=== PATIENT | male | born 1945 | race Caucasian/White ===

== ENCOUNTER 2018-10-03 19:12 | Inpatient (IN) | payer MEDICARE, OTHER, BC ==
[2018-10-03] MEDS ORDERED: Albuterol/Ipratropium NEB.SOL* Albuterol 2.5 MG/Ipratropium 0.5 MG 3 ML INH ONE (19:42)
[2018-10-03] MEDS ORDERED: Levofloxacin 500 MG IVPREMIX(* 500 MG/100 ML BAG IVPB ONE (19:43)
[2018-10-03] MEDS ORDERED: methylPREDNISolone 125 MG* 2 ML VIAL IV ONE (19:43)
[2018-10-03] MEDS ORDERED: Magnesium Sulfate 2 GM IV* 2 GM/50 ML BAG IVPB ONE (19:43)
--- NOTE | 2018-10-03 19:46 | ED ---
Shortness of Breath - HPI Summary HPI Summary: This patient is a 73 year old M presenting to [facility] accompanied by his with a chief complaint of sudden onset shortness of breath since 18:00. Patient received a CXR at [place] this morning and notes that it was normal. The patient rates the pain 0/10 in severity. Symptoms aggravated by nothing. Symptoms alleviated by nothing. Patient reports cough, fever, sore throat and HERNANDEZ since 1 day ago. Patient denies being swabbed for the flu while at [place]. Patient notes that he was given Tamiflu and abx at [place] this morning. Hx COPD , AFib, sleep apnea, and CHF. Patient notes that he uses a BPAP machine at night. - History of Current Complaint Chief Complaint: EDShortnessOfBreath Time Seen by Provider: 10/03/18 19:23 Hx Obtained From: Patient Onset/Duration: Sudden Onset, Lasting Hours, Still Present Timing: Constant Current Severity: Mild Dyspnea At: Rest Aggrevating Factors: Other Alleviating Factors: Other Associated Signs & Symptoms: Cough (Nonproductive), Fever - Allergy/Home Medications Allergies/Adverse Reactions: Allergies Allergy/AdvReac Type Severity Reaction Status Date / Time No Known Allergies Allergy Verified 10/03/18 19:17 PMH/Surg Hx/FS Hx/Imm Hx Endocrine/Hematology History: Denies: Hx Anticoagulant Therapy, Hx Diabetes, Hx Thyroid Disease Cardiovascular History: Reports: Hx Angina, Hx Atrial Fibrillation, Hx Congestive Heart Failure, Hx Hypertension - TREATED WITH MEDICATION Denies: Hx Myocardial Infarction, Hx Pacemaker/ICD, Hx Syncope Respiratory History: Reports: Hx Chronic Obstructive Pulmonary Disease (COPD), Hx Sleep Apnea Denies: Hx Asthma History: Denies: Hx Dialysis, Hx Renal Disease Musculoskeletal History: Reports: Hx Arthritis, Hx Back Problems, Hx Gout Sensory History: Denies: Hx Hearing Aid Neurological History: Denies: Hx Dementia, Hx Migraine, Hx Seizures Psychiatric History: Denies: Hx Panic Disorder, Hx Substance Abuse - Surgical History Surgery Procedure, Year, and Place: 2 LT KNEE SCOPE. 2 RT KNEE SCOPE. 1 LT SHOULDER RCT. 4 RADIO FREQUENCY ABLASIONS IN BACK 08/29,08/28,06/16/14. APPENDECTOMY 1951. LASIK EYE. LUMBAR LAMINECTOMY 12/2014 [facility] Hx Anesthesia Reactions: No Infectious Disease History: No Infectious Disease History: Denies: Hx Hepatitis, Hx Human Immunodeficiency Virus (HIV), Traveled Outside the [place] in Last 30 Days - Family History Known Family History: Positive: Cardiac Disease, Hypertension - Social History Alcohol Use: Daily Alcohol Amount: 1-5 drinks Substance Use Type: Reports: None Smoking Status (MU): Former Smoker Type: Cigarettes, Cigars Length of Time of Smoking/Using Tobacco: [id number] Have You Smoked in the Last Year: No Review of Systems Positive: Fever Positive: Sore Throat Positive: Shortness Of Breath, Cough Negative: Vomiting Positive: Headache All Other Systems Reviewed And Are Negative: Yes Physical Exam - Summary Physical Exam Summary: VITAL SIGNS: Reviewed. GENERAL: Patient is a morbidly obese MALE who is lying comfortable in the stretcher. Patient is not in any acute respiratory distress. HEAD AND FACE: No signs of trauma. No ecchymosis, hematomas or skull depressions. No sinus tenderness. EYES: PERRLA, EOMI x 2, No injected conjunctiva, no nystagmus. EARS: Hearing grossly intact. Ear canals and tympanic membranes are within normal limits. MOUTH: Oropharynx within normal limits. NECK: Supple, trachea is midline, no adenopathy, no JVD, no carotid bruit, no c- spine tenderness, neck with full ROM. CHEST: Symmetric, no tenderness at palpation LUNGS: Decreased breath sounds bilaterally. No wheezing or crackles. CVS: Regular rate and rhythm, S1 and S2 present, no murmurs or gallops appreciated. ABDOMEN: Non-tender. Abdominal distension. No rebound no guarding, and no masses palpated. Bowel sounds are normal. EXTREMITIES: FROM in all major joints, no edema, no cyanosis or clubbing. NEURO: Alert and oriented x 3. No acute neurological deficits. Speech is normal and follows commands. SKIN: Dry and warm Triage Information Reviewed: Yes Vital Signs On Initial Exam: Initial Vitals Temp Pulse Resp BP Pulse Ox 99.5 F 114 20 140/87 98 10/03/18 19:13 10/03/18 19:13 10/03/18 19:13 10/03/18 19:13 10/03/18 19:13 Vital Signs Reviewed: Yes Diagnostics - Vital Signs Vital Signs Temp Pulse Resp BP Pulse Ox 10/03/18 19:13 99.5 F 114 20 140/87 98 - Laboratory Result Diagrams: 10/03/18 19:58 10/03/18 19:58 Lab Statement: Any lab studies that have been ordered have been reviewed, and results considered in the medical decision making process. - Radiology CXR Radiology Interpretation Completed By: ED Physician - Dr. Winchester, pending official report Summary of Radiographic Findings: questionable right lower lobe infiltrates - EKG 19:19 Cardiac Rate: Tachycardia - at 111 bpm EKG Rhythm: Atrial Fibrillation Summary of EKG Findings: AFib at 111 bpm with low voltage Course/Dx - Course Course Of Treatment: This patient is a 73 year old M with hx COPD, AFib, and CHF reporting sudden onset shortness of breath since 18:00. Patient reports cough, fever, and HERNANDEZ since 1 day ago. Patient denies being swabbed for the flu while at [place] this morning. Patient notes that he was given Tamiflu and abx this morning. An EKG reveals AFib at 111 bpm and low voltage. CXR reveals, per ED physician, questionable right lower lobe infiltrates. In the ED course the patient was given albuterol, Levaquin, magnesium sulfate, and Solu-Medrol. Patient care was discussed with Dr. Stovall, hospitalist, and she agreed to admit the patient. Patient will be admitted to [facility]. The patient is agreeable with this plan. - Diagnoses Provider Diagnoses: COPD (chronic obstructive pulmonary disease), Influenza A - Physician Notifications Discussed Care of Patient With: Sonja Stovall Time Discussed With Above Provider: 20:39 Instructed by Provider To: Admit As Inpatient Discharge - Sign-Out/Discharge Documenting (check all that apply): Patient Departure - admitted to [facility] - Discharge Plan Condition: Stable Disposition: ADMITTED TO [facility] Referrals: Deborah Ruiz MD [Primary Care Provider] - - Attestation Statements Document Initiated by Scribe: Yes Documenting Scribe: Lisy Cadet Provider For Whom Bill is Documenting (Include Credential): Niecy Winchester MD Scribe Attestation: Lisy Holland, scribed for Niecy Winchester MD on 10/03/18 at 2033. Status of Scribe Document: Ready
[2018-10-03 20:09] LABS: ABS Basophils 0.1 10^3/ul (0-0.2); ABS Eosinophils 0 10^3/ul (0-0.6); ABS Lymphocytes 0.5 10^3/ul (1.0-4.8); ABS Monocytes 1.3 10^3/ul (0-0.8); ABS Neutrophils 9.2 10^3/ul (1.5-7.7); ABS Nucleated RBC 0 10^3/ul; Eosinophil % 0.3 %; Hematocrit 45 % (42-52); Hemoglobin 15.2 g/dl (14.0-18.0); Lymphocyte % 4.6 %; Mean Corpuscular HGB Conc 34 g/dl (31-36); Mean Corpuscular Hemoglobin 32 pg (27-31); Mean Corpuscular Volume 94 fL (80-94); Mean Platelet Volume 7.8 fL (7.4-10.4); Nucleated Red Blood Cells % 0; Platelet Count 241 10^3/ul (150-450); Red Blood Count 4.83 10^6/ul (4.00-5.40); Red Cell Distribution Width 13 % (10.5-15); White Blood Count 11.1 10^3/ul (3.5-10.8)
[2018-10-03] MEDS: Albuterol 2.5 MG/3 ML NEB.SOL* (0.083%) INH PRN ×2 (20:15→20:30)
[2018-10-03] MEDS ORDERED: Albuterol 2.5 MG/3 ML NEB.SOL* (0.083%) INH ONE (20:18)
[2018-10-03 20:19] LABS: Activated Partial Thrombo Time 36.3 seconds (26.0-36.3); INR 1.59 (0.77-1.02)
[2018-10-03 20:27] LABS: Albumin 4.4 g/dL (3.2-5.2); Albumin/Globulin Ratio 1.6 (1-3); C Reactive Protein 23.44 mg/L (<8.01); Calcium 9.2 mg/dL (8.6-10.3); EGFR Non-African American 56.1 (>60); Globulin 2.8 g/dL (2-4); Total Bilirubin 0.7 mg/dL (0.2-1.0); Total Protein 7.2 g/dL (6.4-8.9)
[2018-10-03] MEDS ORDERED: Acetaminophen TAB* 325 MG PO ONE (20:33)
[2018-10-03] MEDS ORDERED: NS 0.9% 1000 ML* 1,000 ML IV ONE ×2 (21:14→21:17)
[2018-10-03] MEDS ORDERED: Diltiazem IV* 5 MG/ML 5 ML VIAL (for loading dose/IV Push) (25 MG) IV SLOW PU ONE ×2 (21:15→21:55)
[2018-10-03] MEDS ORDERED: Ondansetron INJ* 2 MG/ML VIAL IV PRN (21:58)
[2018-10-03] MEDS ORDERED: Acetaminophen TAB* 325 MG PO PRN (21:58)
[2018-10-03] MEDS ORDERED: Albuterol/Ipratropium NEB.SOL* Albuterol 2.5 MG/Ipratropium 0.5 MG 3 ML INH PRN (22:12)
[2018-10-03] MEDS ORDERED: NS 0.9% 1000 ML* 1,000 ML IV SCH (22:15)
[2018-10-03] MEDS ORDERED: cefTRIAXone(*) 1 GM ADVAN/BAG ONE (22:25)
[2018-10-03] MEDS: cefTRIAXone(*) 1 GM in NS 0.9% 50 ML* 50 ML IVPB SCH (22:27)
[2018-10-03] MEDS ORDERED: Fluticasone/Vilanterol MDI(NF) 100/25 MDI INH SCH (23:00)
[2018-10-03] MEDS ORDERED: Diltiazem IV VIAL* 125 MG in NS 0.9% 100 ML* 100 ML IV SCH (23:30)
[2018-10-03] MEDS ORDERED: Melatonin 3 MG TAB PO PRN (23:57)
[2018-10-04] MEDS: Oseltamivir CAP* 75 MG CAP PO SCH ×3 (00:21→20:07)
[2018-10-04] MEDS: DOXYcycline IV* 100 MG in NS 0.9% 250 ML* 250 ML IVPB SCH ×2 (00:21→11:57)
[2018-10-04] MEDS ORDERED: Diltiazem IV VIAL* 125 MG in NS 0.9% 100 ML* 100 ML IV SCH ×2 (01:04→16:00)
--- NOTE | 2018-10-04 03:49 | HP ---
CC: Dr. Ruiz; Dr. Montenegro * HISTORY AND PHYSICAL: DATE OF ADMISSION: 10/03/18 PRIMARY CARE DOCTOR: Dr. Ruiz. OUTPATIENT OPTICAL INSTRUMENT ASSEMBLER: Dr. Montenegro. MY ATTENDING PHYSICIAN WHILE IN THE HOSPITAL: Dr. Sonja Sharma* (DICTATED BY CAM JOHNSON) CHIEF COMPLAINT: Shortness of breath and cough x1 day. HISTORY OF PRESENT ILLNESS: Mr. Choudhury is a 73-year-old patient with a past medical history significant for atrial fibrillation, CHF, reactive airway disease, hypertension, hyperlipidemia, and FILIPE who presents to the emergency department after last night he was in his normal state of health and around 6 p.m. began to develop a significant cough, which kept him up most of the night, but without significant shortness of breath or wheezing. The patient also had no chest pain, increased swelling in his legs, dyspnea on exertion. The patient went to a physician at [place] and had a chest x-ray, which that physician there interpreted as being consistent with flu with no focal consolidation. He was prescribed Tamiflu, azithromycin, cough syrup, and was discharged home, that was around 3 p.m. At approximately 6:15 p.m., the patient suddenly felt like he was unable to catch his breath. The patient denied any audible wheezing, but felt lightheaded. EMS was activated. The patient received a breathing treatment in the ambulance which helped significantly. The patient's lightheadedness went away. The patient has been having chills throughout the day today. The patient denies any subjective or objective fevers. The patient denies at any point having any chest pain. The patient denies palpitations. The patient does not know when he goes in and out of atrial fibrillation. The patient is not having any diarrhea, abdominal pain, muscle aches. The patient has not passed out. The patient now feels like he can breathe significantly easier. The patient in the emergency department was found to be influenza A positive and had a chest x-ray with a possible lobar infiltrate in the right lower lobe per the ED physician and this reader, it is possible interstitial changes that would be consistent with flu or fluid overload. The patient was hypoxic in the ambulance and has been needing 4 L of oxygen and has been tachycardic up to the 160s consistently while in the emergency department. Due to concerns for flu, possible pneumonia, and tachycardia, we are asked to evaluate the patient for admission. PAST MEDICAL HISTORY: Atrial fibrillation; obstructive sleep apnea; hypertension; hyperlipidemia; history of CVA in 2012; history of CHF, unknown EF ; reactive airway disease, recently normal PFTs. PAST SURGICAL HISTORY: Radiofrequency ablation of the spine, meniscotomy in both knees twice, rotator cuff repair. MEDICATIONS: 1. Diltiazem ER 240 mg p.o. daily. 2. Allopurinol 300 mg p.o. daily. 3. Tamiflu 75 mg p.o. b.i.d., the patient has taken 1 dose. 4. Robafen AC 10 mL q.4 hours as needed. 5. Z-Oscar, the patient has taken 500 mg of this. 6. Breo Ellipta 125 inhalations, 1 inhalation b.i.d. 7. Singular 10 mg p.o. daily. 8. Rosuvastatin 40 mg p.o. daily. 9. Torsemide 20 mg p.o. daily. 10. ProAir inhaler 1 puff inhalation q.6 hours as needed. 11. Xarelto 5 mg p.o. daily. 12. Sildenafil 100 mg p.o. as needed. ALLERGIES: No know drug allergies. FAMILY HISTORY: The patient's mother with complications of dementia. The patient's father of heart attack. The patient has 2 sisters who are healthy. SOCIAL HISTORY: The patient smoked cigarettes from 1962 to 1973. The patient smokes cigars occasionally until recently. The patient drinks approximately 2 beers a day, 1 glass of zaheer, and 1 glass of red wine. The patient denies illicit drug use. The patient used to work as a golf pro. The patient is , has 2 children. The patient's surrogate decision maker will be his , Kathy Choudhury. REVIEW OF SYSTEMS: A 14-point review of systems were reviewed and revealed recent 22-pound weight gain after the patient was unable to exercise to his normal routine, but no other significant finding except as noted in the HPI. PHYSICAL EXAMINATION GENERAL: The patient is a 73-year-old male who appears stated age, sitting comfortably in bed, in no acute distress. VITAL SIGNS: Temperature 97.8, pulse rate 112, respiratory rate 25, oxygen saturation 97% on 4 L, blood pressure 133/80. HEENT: Head: Normocephalic, atraumatic. Sclerae anicteric. No conjunctival injection. Nasal mucosa moist. Oral mucosa moist. No pharyngeal erythema, discharge, or exudate. NECK: Supple, nontender. No lymphadenopathy. No carotid bruit auscultated. No JVD. RESPIRATORY: Diminished. No wheezes, rales, or rhonchi. Good air exchange bilaterally. HEART: Tachycardic, irregularly irregular rhythm. No clicks, murmurs, gallops , or rubs. Pulse is 2+ in the dorsalis pedis, posterior tibialis, and radial areas. Trace bilateral lower extremity edema. ABDOMEN: Soft, nontender, nondistended. Bowel sounds present and normoactive in all 4 quadrants. No hepatosplenomegaly. No abdominal bruits auscultated. No hepatojugular reflux. GENITOURINARY: No suprapubic or CVA tenderness. SKIN: Clean, dry, and intact. No rash. NEUROLOGIC: Cranial nerves II through XII intact. No focal deficits. Alert and oriented x3. PSYCHIATRIC: Pleasant and cooperative. DIAGNOSTIC STUDIES/LAB DATA: White blood cell count 11.1, hemoglobin 15.2, platelet count 241. INR 1.59, PTT 36.3. ABG; pH 7.46, pCO2 of 40, pO2 of 90, pCO3 of 28.2, oxygen saturation 98.4%, base excess 4.2. Sodium 136, potassium 4.0, chloride 98, carbon dioxide 29, anion gap 9, BUN 24, creatinine 1.26, glucose 132, lactic acid 1.5, calcium 9.2. Bilirubin 0.7, AST 20, ALT 37, alkaline phosphatase 67. Troponin I 0.03. CRP 23.44. BNP 76. Protein 7.2, albumin 4.4, globulin 2.8. Influenza A positive. Studies: Electrocardiogram shows atrial fibrillation with rate of 111; borderline ST segment depression in V3, V4, and V5; QTc 499; rate of 111; normal axis; no blocks or hypertrophy; compared to previous exam, no significant changes. Chest x-ray to this author's view shows interstitial changes with possible right lower lobe infiltrate. ASSESSMENT AND PLAN: Impression: The patient is a 73-year-old male with past medical history significant for atrial fibrillation, hypertension, congestive heart failure, and reactive airway disease who presents to the emergency department with flu A positive with possible community acquired pneumonia superinfection, also with mild chronic obstructive pulmonary disease, who in the emergency department was found to be flu A positive and to have uncontrolled tachycardia. The patient will be admitted to the hospital for rate control, IV antibiotics, and treatment of his flu. 1. Influenza positive, possible pneumonia, acute hypoxic respiratory failure. The patient is currently requiring 4 L oxygen via nasal cannula. The patient has flu A positive and has a likely infiltrate on exam. The patient will be treated with Tamiflu, ceftriaxone, and doxycycline. The patient received Levaquin in the emergency department and also received azithromycin as outpatient. The patient will have repeat chest x-ray in the morning for further elucidation of his possible infiltrate. The patient has a BNP currently of 76 and has a known history of heart failure. The patient's lung exam is not consistent with congestive heart failure at this time; however, given the patient's already tenuous respiratory status, we will be cautious with fluids. The patient was started on steroids in the emergency department, this will not be continued due to lack of predominant wheezing. 2. Atrial fibrillation with rapid ventricular rate. The patient's rate is fluctuating between the 130s and 160s during examination. This is likely partially due to his respiratory treatments with underlying atrial fibrillation. The patient will be started on normal saline at 100 mL an hour for blood pressure support. The patient has already received 2 boluses of 1000 mL each. The patient will be started on diltiazem drip for rate control. The patient had a negative troponin and non-ischemic EKG. The patient will be continued on his Xarelto. Inpatient cardiology consult can be considered if the patient's atrial fibrillation continues to be an issue or he shows signs of decompensation or his blood pressure is not able to kept up with adequate rate control due to his concurrent infection. 3. History of congestive heart failure. The patient does not appear to be in congestive heart failure at this time. The patient has a BNP of 76. She will be monitored closely for signs of fluid overload. The patient's torsemide will be held at this time. 4. Obstructive sleep apnea. The patient will have his home CPAP while in the hospital. 5. Hypertension. The patient will be on diltiazem drip. The patient will be monitored closely for hypotension. 6. Hyperlipidemia. Continue Crestor. 7. Cerebrovascular accident. This is a non-active issue. The patient is not on any antiplatelet agent. 8. DVT prophylaxis: Xarelto. 7. FEN: The patient will have fluids and a heart healthy diet without caffeine. 8. Disposition. The patient is admitted inpatient with estimated length of stay greater than 2 midnights. TIME SPENT: Approximately 1 hour spent on admission of this patient, 35 of which was spent [id number] with the patient obtaining history and physical and discussing treatment plan. This plan was discussed with my attending, Dr. Sonja Sharma, and she is in agreement. CAM JOHNSON [id number]/CPS #: [id number] RON
[2018-10-04 06:06] LABS: ABS Basophils 0 10^3/ul (0-0.2); ABS Eosinophils 0 10^3/ul (0-0.6); ABS Lymphocytes 0.3 10^3/ul (1.0-4.8); ABS Monocytes 0.2 10^3/ul (0-0.8); ABS Neutrophils 7.3 10^3/ul (1.5-7.7); ABS Nucleated RBC 0 10^3/ul; Eosinophil % 0.1 %; Hematocrit 40 % (42-52); Hemoglobin 13.6 g/dl (14.0-18.0); Lymphocyte % 4.2 %; Mean Corpuscular HGB Conc 34 g/dl (31-36); Mean Corpuscular Hemoglobin 32 pg (27-31); Mean Corpuscular Volume 94 fL (80-94); Mean Platelet Volume 7.7 fL (7.4-10.4); Nucleated Red Blood Cells % 0; Platelet Count 214 10^3/ul (150-450); Red Blood Count 4.26 10^6/ul (4.00-5.40); Red Cell Distribution Width 13 % (10.5-15); White Blood Count 7.8 10^3/ul (3.5-10.8)
[2018-10-04 06:33] LABS: BUN/Creatinine Ratio 19.8 (8-20); Calcium 8.6 mg/dL (8.6-10.3); EGFR Non-African American 64.9 (>60); Magnesium 2.3 mg/dL (1.9-2.7); Potassium 3.8 mmol/L (3.5-5.0)
[2018-10-04] MEDS: MDI INH SCH ×2 (07:31→20:45)
[2018-10-04] MEDS: FLUTICASONE INH SCH ×2 (07:31→20:45)
[2018-10-04] MEDS: VILANTEROL MDI INH SCH ×2 (07:31→20:45)
[2018-10-04] MEDS: Atorvastatin* 80 MG TAB PO SCH (08:27)
[2018-10-04] MEDS: Rivaroxaban TAB(*) 20 MG TAB PO SCH (08:27)
[2018-10-04] MEDS: guaiFENesin ER TAB 600 MG PO SCH ×2 (08:27→20:07)
[2018-10-04] MEDS: Allopurinol TAB* 300 MG PO SCH (08:29)
--- NOTE | 2018-10-04 11:45 | PN ---
Subjective Date of Service: 10/04/18 Interval History: On assessment patient lying in bed without O2 supplementation. O2 sat on room air was 90% to 92%. Therefore, 2L replaced and O2 sat 96%. Reports he is coughing less frequently and "less violently". Reports shortness of breath has mildly improved. Objective Active Medications: Acetaminophen (Tylenol Tab*) 650 mg PO Q6H PRN PRN Reason: FEVER/PAIN Albuterol/Ipratropium (Duoneb (Albuterol 2.5 Mg/Ipratropium 0.5 Mg)) 1 neb INH Q6H PRN PRN Reason: SOB/WHEEZING Allopurinol (Zyloprim Tab*) 300 mg PO DAILY [facility] Last Admin: 10/04/18 08:29 Dose: Not Given Atorvastatin Calcium (Lipitor*) 80 mg PO DAILY [facility] Last Admin: 10/04/18 08:27 Dose: 80 mg Benzonatate (Tessalon Cap*) 100 mg PO BID PRN PRN Reason: COUGH Fluticasone/Vilanterol (Breo Ellipta Mdi 100/25(Nf)) 1 puff INH BID [facility] Last Admin: 10/04/18 07:31 Dose: Not Given Guaifenesin (Mucinex*) 1,200 mg PO BID [facility] Last Admin: 10/04/18 08:27 Dose: 1,200 mg Guaifenesin/Codeine Phosphate (Robitussin Ac 100mg-10mg*) 10 ml PO Q4H PRN PRN Reason: COUGH Sodium Chloride (Ns 0.9% 1000 Ml*) 1,000 mls @ 100 mls/hr IV PER RATE [facility] Doxycycline Hyclate 100 mg/ (Sodium Chloride) 250 mls @ 250 mls/hr IVPB Q12H [facility] Last Admin: 10/04/18 00:21 Dose: 250 mls/hr Ceftriaxone Sodium 1 gm/ (Sodium Chloride) 50 mls @ 200 mls/hr IVPB Q24H [facility] Last Admin: 10/03/18 22:27 Dose: 200 mls/hr Diltiazem HCl 125 mg/ Sodium (Chloride) 125 mls @ 5 mls/hr IV Q25H [facility]; Protocol Last Admin: 10/04/18 01:16 Dose: Not Given Melatonin (Melatonin) 3 mg PO BEDTIME PRN; Protocol PRN Reason: SLEEP Last Admin: 10/04/18 00:21 Dose: 3 mg Ondansetron HCl (Zofran Inj*) 4 mg IV Q6H PRN PRN Reason: NAUSEA Oseltamivir Phosphate (Tamiflu Cap*) 75 mg PO BID [facility] Stop: 10/07/18 21:01 Last Admin: 10/04/18 08:28 Dose: 75 mg Rivaroxaban (Xarelto(*)) 20 mg PO DAILY [facility] Last Admin: 10/04/18 08:27 Dose: 20 mg Vital Signs - 8 hr 10/04/18 10/04/18 10/04/18 03:46 03:57 04:30 Respiratory Rate Blood Pressure 98/60 92/70 96/58 (mmHg) 10/04/18 10/04/18 10/04/18 05:30 06:30 08:00 Respiratory 16 Rate Blood Pressure 127/86 109/63 (mmHg) 10/04/18 10/04/18 10:29 10:30 Respiratory Rate Blood Pressure 123/85 129/80 (mmHg) Oxygen Devices in Use Now: Nasal Cannula Appearance: Comfortable, NAD Eyes: No Scleral Icterus Ears/Nose/Mouth/Throat: Clear Oropharnyx, Mucous Membranes Moist Neck: NL Appearance and Movements; NL JVP Respiratory: Symmetrical Chest Expansion and Respiratory Effort, Clear to Auscultation Cardiovascular: NL Sounds; No Murmurs; No JVD, No Edema, - - Irregular Abdominal: NL Sounds; No Tenderness; No Distention Lymphatic: No Cervical Adenopathy Extremities: No Edema Skin: No Rash or Ulcers Neurological: Alert and Oriented x 3 Nutrition: Taking PO's Result Diagrams: 10/04/18 05:28 10/04/18 05:31 Additional Lab and Data: Laboratory Results - last 24 hr 10/03/18 10/03/18 10/03/18 19:58 19:58 19:58 WBC 11.1 H RBC 4.83 Hgb 15.2 Hct 45 MCV 94 MCH 32 H MCHC 34 RDW 13 Plt Count 241 MPV 7.8 Neut % (Auto) 82.8 Lymph % (Auto) 4.6 [place] % (Auto) 11.8 Eos % (Auto) 0.3 Baso % (Auto) 0.5 Absolute Neuts (auto) 9.2 H Absolute Lymphs (auto) 0.5 L Absolute Monos (auto) 1.3 H Absolute Eos (auto) 0 Absolute Basos (auto) 0.1 Absolute Nucleated RBC 0 Nucleated RBC % 0 INR (Anticoag Therapy) APTT ABG pH ABG pCO2 ABG pO2 ABG HCO3 ABG O2 Saturation ABG Base Excess Sodium 136 Potassium 4.0 Chloride 98 L Carbon Dioxide 29 Anion Gap 9 BUN 24 Creatinine 1.26 H Est GFR ( Amer) 67.9 Est GFR (Non-Af Amer) 56.1 BUN/Creatinine Ratio 19.0 Glucose 132 H Lactic Acid 1.5 Calcium 9.2 Magnesium Total Bilirubin 0.70 AST 28 ALT 37 Alkaline Phosphatase 67 Troponin I 0.03 C-Reactive Protein 23.44 H B-Natriuretic Peptide Total Protein 7.2 Albumin 4.4 Globulin 2.8 Albumin/Globulin Ratio 1.6 Influenza A (Rapid) 10/03/18 10/03/18 10/03/18 19:58 19:58 20:10 WBC RBC Hgb Hct MCV MCH MCHC RDW Plt Count MPV Neut % (Auto) Lymph % (Auto) [place] % (Auto) Eos % (Auto) Baso % (Auto) Absolute Neuts (auto) Absolute Lymphs (auto) Absolute Monos (auto) Absolute Eos (auto) Absolute Basos (auto) Absolute Nucleated RBC Nucleated RBC % INR (Anticoag Therapy) 1.59 H APTT 36.3 ABG pH 7.46 H ABG pCO2 40 ABG pO2 94 ABG HCO3 28.2 ABG O2 Saturation 98.4 H ABG Base Excess 4.2 H Sodium Potassium Chloride Carbon Dioxide Anion Gap BUN Creatinine Est GFR ( Amer) Est GFR (Non-Af Amer) BUN/Creatinine Ratio Glucose Lactic Acid Calcium Magnesium Total Bilirubin AST ALT Alkaline Phosphatase Troponin I C-Reactive Protein B-Natriuretic Peptide 76 Total Protein Albumin Globulin Albumin/Globulin Ratio Influenza A (Rapid) 10/03/18 10/04/18 10/04/18 20:17 05:28 05:31 WBC 7.8 RBC 4.26 Hgb 13.6 L Hct 40 L MCV 94 MCH 32 H MCHC 34 RDW 13 Plt Count 214 MPV 7.7 Neut % (Auto) 93.1 Lymph % (Auto) 4.2 [place] % (Auto) 2.4 Eos % (Auto) 0.1 Baso % (Auto) 0.2 Absolute Neuts (auto) 7.3 Absolute Lymphs (auto) 0.3 L Absolute Monos (auto) 0.2 Absolute Eos (auto) 0 Absolute Basos (auto) 0 Absolute Nucleated RBC 0 Nucleated RBC % 0 INR (Anticoag Therapy) APTT ABG pH ABG pCO2 ABG pO2 ABG HCO3 ABG O2 Saturation ABG Base Excess Sodium 136 Potassium 3.8 Chloride 100 L Carbon Dioxide 26 Anion Gap 10 BUN 22 Creatinine 1.11 Est GFR ( Amer) 78.6 Est GFR (Non-Af Amer) 64.9 BUN/Creatinine Ratio 19.8 Glucose 208 H Lactic Acid Calcium 8.6 Magnesium 2.3 Total Bilirubin AST ALT Alkaline Phosphatase Troponin I C-Reactive Protein B-Natriuretic Peptide Total Protein Albumin Globulin Albumin/Globulin Ratio Influenza A (Rapid) Positive A Microbiology and Other Data: Microbiology 10/03/18 22:20 Legionella Urinary Antigen - Final Urine Negative Legionella Antigen Streptococcus pneumoniae Ag Screen - Final Negative S. pneumo Antigen 10/03/18 19:58 Influenza Types A,B Antigen - Final Nasopharyngeal Specimen received for Influenza A/B Molecular testing Assess/Plan/Problems-Billing Assessment: 73 yr old male with pmh of afib, chf, reactive airway, htn, hld, maxwell; who present with cough and sob and was found to have flu a and pneumonia - Patient Problems (1) Acute respiratory failure with hypoxia Comment: - Improving as patient was needing 4L on admission and can maintain saturation on 2L - Cont supplemental O2 and wean as tolerating - Cont nebs (2) Influenza A Comment: - Cont Tamiflu (3) Pneumonia Comment: - Repeat chext xray revealed resolving right lower lobe infiltrate - Cont IV abx, possibly deesculate tomorrow (4) Atrial fibrillation with RVR Comment: - Patient is usually on 240 mg Diltizam ER at home, therefore, this restarted and Cardizem drip titrated off. - Cont tele (5) Dyslipidemia Comment: - Cont statin (6) HTN (hypertension) Comment: - Normotensive - Cont Diltiazam (7) MAXWELL (obstructive sleep apnea) Comment: - Cont Cpap (8) ETOH abuse Comment: - Report significant etoh intake on admission - Staff reports he detoxed on previous admission - [facility] protocol ordered (9) DVT prophylaxis Comment: - Xarlto Attending: Robert Roberson
[2018-10-04] MEDS ORDERED: Diltiazem TAB* 30 MG PO PRN (15:56)
[2018-10-04] MEDS ORDERED: Diltiazem CD CAP* 240 MG PO SCH (16:00)
[2018-10-04] MEDS: guaiFENesin/CODIEN 100MG-10MG* 5 ML UDC PO PRN ×2 (16:20→20:07)
[2018-10-04] MEDS ORDERED: Acetaminophen TAB* 325 MG PO PRN (18:42)
[2018-10-04] MEDS ORDERED: Thiamine IV* 100 MG/ML 2 ML VIAL IM ONE (19:30)
[2018-10-04] MEDS ORDERED: LORazepam TAB(*) 1 MG PO SCH (19:30)
[2018-10-04] MEDS: Benzonatate CAP* 100 MG PO PRN (20:07)
[2018-10-04] MEDS: cefTRIAXone(*) 1 GM in NS 0.9% 50 ML* 50 ML IVPB SCH (21:23)
[2018-10-05] MEDS: DOXYcycline IV* 100 MG in NS 0.9% 250 ML* 250 ML IVPB SCH (00:14)
[2018-10-05] MEDS: Atorvastatin* 80 MG TAB PO SCH (08:52)
[2018-10-05] MEDS: Oseltamivir CAP* 75 MG CAP PO SCH (08:52)
[2018-10-05] MEDS: Rivaroxaban TAB(*) 20 MG TAB PO SCH (08:52)
[2018-10-05] MEDS: Benzonatate CAP* 100 MG PO PRN (08:53)
[2018-10-05] MEDS: guaiFENesin ER TAB 600 MG PO SCH (08:53)
[2018-10-05] MEDS: Allopurinol TAB* 300 MG PO SCH (08:54)
[2018-10-05] MEDS ORDERED: Thiamine TAB* 100 MG TAB PO SCH (09:00)
[2018-10-05] MEDS ORDERED: Multivitamins/Minerals TAB PO SCH (09:00)
[2018-10-05] MEDS ORDERED: Folic Acid TAB* 1 MG PO SCH (09:00)
[2018-10-05] MEDS: MDI INH SCH (09:55)
[2018-10-05] MEDS: VILANTEROL MDI INH SCH (09:55)
[2018-10-05] MEDS: FLUTICASONE INH SCH (09:55)
--- NOTE | 2018-10-05 10:07 | PN ---
Subjective Date of Service: 10/05/18 Interval History: Mr. Choudhury reports that he is feeling better. He had minimal cough during the day yesterday but did have trouble sleeping due to cough overnight. He is tired and weak but feels that he is much improved overall. He denies chest pain and is tolerating oral intake well. He is eager for discharge to home. Objective Active Medications: Acetaminophen (Tylenol Tab*) 650 mg PO Q4H PRN Albuterol/Ipratropium (Duoneb (Albuterol 2.5 Mg/Ipratropium 0.5 Mg)) 1 neb INH Q6H PRN Allopurinol (Zyloprim Tab*) 300 mg PO DAILY RICARDA Atorvastatin Calcium (Lipitor*) 80 mg PO DAILY RICARDA Benzonatate (Tessalon Cap*) 100 mg PO BID PRN Diltiazem HCl (Cardizem Cd Cap*) 240 mg PO Q24H RICARDA Diltiazem HCl (Cardizem Tab*) 30 mg PO Q6HR PRN Fluticasone/Vilanterol (Breo Ellipta Mdi 100/25(Nf)) 1 puff INH BID RICARDA Folic Acid (Folvite Tab*) 1 mg PO DAILY RICARDA Guaifenesin (Mucinex*) 1,200 mg PO BID RICARDA Guaifenesin/Codeine Phosphate (Robitussin Ac 100mg-10mg*) 10 ml PO Q4H PRN Doxycycline Hyclate 100 mg/ (Sodium Chloride) 250 mls @ 250 mls/hr IVPB Q12H RICARDA Ceftriaxone Sodium 1 gm/ (Sodium Chloride) 50 mls @ 200 mls/hr IVPB Q24H RICARDA Lorazepam (Ativan Tab(*)) 0 - 6 mg PO .PER [facility] PROTOCOL RICARDA; Protocol Melatonin (Melatonin) 3 mg PO BEDTIME PRN; Protocol Multivitamins/Minerals (Theragran/Minerals Tab*) 1 tab PO DAILY RICARDA Ondansetron HCl (Zofran Inj*) 4 mg IV Q6H PRN Oseltamivir Phosphate (Tamiflu Cap*) 75 mg PO BID RICARDA Rivaroxaban (Xarelto(*)) 20 mg PO DAILY RICARDA Thiamine HCl (Vitamin B-1 Tab*) 100 mg PO DAILY [facility] Vital Signs: Temp Pulse Resp BP Pulse Ox 96.8 F 74 16 110/71 97 10/05/18 06:15 01/19/19 06:15 10/05/18 06:54 10/05/18 06:15 10/05/18 06:15 Oxygen Devices in Use Now: None Appearance: Male sitting up in bed in NAD Eyes: No Scleral Icterus Ears/Nose/Mouth/Throat: Mucous Membranes Moist Neck: Trachea Midline Respiratory: Symmetrical Chest Expansion and Respiratory Effort, Clear to Auscultation Cardiovascular: NL Sounds; No Murmurs; No JVD, No Edema Abdominal: NL Sounds; No Tenderness; No Distention Extremities: No Edema Skin: No Rash or Ulcers Neurological: Alert and Oriented x 3, NL Muscle Strength and Tone Nutrition: Taking PO's Result Diagrams: 10/04/18 05:28 10/04/18 05:31 Additional Lab and Data: . Microbiology and Other Data: . Assess/Plan/Problems-Billing Assessment: Mr. Choudhury is a 73 yr old male with pmh of afib, chf, reactive airway, htn, hld, filipe; who present with cough and sob and was found to have flu a and pneumonia. - Patient Problems (1) Acute respiratory failure with hypoxia Comment: - Resolved, SpO2 98% on room air at rest. (2) Influenza A Comment: - Cont Tamiflu x 5 days (3) Pneumonia Comment: - Repeat chext xray revealed resolving right lower lobe infiltrate - Complete course of cefpodoxime and azithromycin x 5 days total (4) ETOH abuse Comment: - No signs of withdrawal (5) Atrial fibrillation with RVR Comment: - Now controlled on home diltiazem (6) Dyslipidemia Comment: - Cont statin (7) HTN (hypertension) Comment: - Normotensive - Cont Diltiazam (8) FILIPE (obstructive sleep apnea) Comment: - Cont Cpap (9) DVT prophylaxis Comment: - Xarelto Status and Disposition: Inpatient. Discharge to home.
[2018-10-05 11:13] VITALS: BP 148/85
--- NOTE | 2018-10-05 12:42 | DS ---
CC: Dr. Ruiz * [facility] DISCHARGE SUMMARY: DATE OF ADMISSION: 10/03/18 DATE OF DISCHARGE: 10/05/18 ATTENDING PHYSICIAN: Dr. Diop * (dictation provided by Shira Pradhan NP). PRIMARY CARE PHYSICIAN: Dr. Ruiz. PRIMARY DIAGNOSES: 1. Influenza. 2. Suspected pneumonia. 3. Acute hypoxic respiratory failure, now resolved. 4. Atrial fibrillation with rapid ventricular rate. SECONDARY DIAGNOSES: 1. History of atrial fibrillation. 2. Obstructive sleep apnea. 3. Hypertension. 4. Hyperlipidemia. 5. History of cerebrovascular accident in 2011. 6. History of congestive heart failure, unknown ejection fraction. 7. Reactive airway disease. 8. Recently normal pulmonary function tests. PAST SURGICAL HISTORY: 1. Radiofrequency ablation of the spine. 2. Meniscotomy in both knees twice. 3. Rotator cuff repair. MEDICATIONS AT THE TIME OF DISCHARGE: 1. Rivaroxaban 20 mg p.o. daily. 2. Torsemide 20 mg p.o. daily. 3. Sildenafil 100 mg p.o. daily p.r.n. 4. Rosuvastatin 40 mg p.o. at bedtime. 5. Tamiflu 75 mg p.o. b.i.d. 6. Robitussin AC 10 mL p.o. q.4 hours p.r.n. 7. Montelukast 10 mg p.o. daily. 8. Fluticasone/vilanterol 200/25 one puff inhaled daily. 9. Diltiazem CD 240 mg p.o. daily. 10. Azithromycin 500 mg p.o. daily to complete a 5-day course. 11. Allopurinol 150 mg p.o. daily. 12. Guaifenesin ER tabs 1200 mg p.o. b.i.d. p.r.n. 13. Cefpodoxime 200 mg p.o. q.12 hours to complete a 5-day course. 14. Benzonatate 100 mg p.o. b.i.d. p.r.n. 15. Albuterol inhaler 2 puffs inhaled q.4 hours p.r.n. HOSPITAL COURSE: Mr. Choudhury is a 73-year-old male with a past medical history as outlined above, who presented to the emergency room on 10/03/18 with concern for shortness of breath and cough x1 day. Please see the dictated H and P from CAM Mcmahan for complete details. In brief as described, the patient had shortness of breath and a cough. He suddenly became very short of breath and unable to catch his breath, and therefore called the emergency medical services and was brought to the hospital. Here, he was found to be flu positive with a chest x-ray showing a possible right lower lobe infiltrate. He was requiring 4 L of oxygen to maintain an O2 saturation greater than 90% and he was tachycardic with a heart rate into the 160s with atrial fibrillation with RVR. Mr. Choudhury was admitted to the hospital. Tamiflu was initiated. The patient was treated with ceftriaxone and doxycycline with concern for pneumonia. For his atrial fibrillation with RVR, the patient was initially placed on a diltiazem infusion for rate control but he is now rate controlled back on his home diltiazem dose. Mr. Choudhury has recovered well. This morning, he is off of oxygen and has an O2 saturation of 98%. He is tolerating oral intake well. He states he has a cough but that the guaifenesin is helpful. Mr. Choudhury is medically stable for discharge to home. Plans are for him to follow up closely with Dr. Ruiz early next week and to complete a 5-day course of antibiotics and treatment of suspected pneumonia. DISPOSITION: To home. DIET: Low fat, low salt. ACTIVITY: As tolerated. FOLLOWUP PLANS: Please follow up with Dr. Ruiz early next week regarding his acute inpatient hospitalization for flu and pneumonia. TIME SPENT: Approximately 60 minutes was spent in the discharge of this patient , more than half the time spent with the patient at the bedside reviewing the events leading up to and during this hospitalization, performing the physical examination, and reviewing my plan of care. SHIRA PRADHAN NP [id number]/[facility] #: [id number] RON
== END 2018-10-05 11:10 | disposition home or self-care (01) | DRG 193 ==
LOC: ED 19:12 → MEDTELE 21:58
PROVIDERS: ADMIT Internal Medicine; ATTEND Internal Medicine
DX: J10.00 Influenza due to other identified influenza virus with unspecified type of pneumonia (principal); J96.01 Acute respiratory failure with hypoxia; J44.0 Chronic obstructive pulmonary disease with (acute) lower respiratory infection; I48.91 Unspecified atrial fibrillation; M10.9 Gout, unspecified; E66.01 Morbid (severe) obesity due to excess calories; G47.33 Obstructive sleep apnea (adult) (pediatric); E78.5 Hyperlipidemia, unspecified; R00.0 Tachycardia, unspecified; F10.10 Alcohol abuse, uncomplicated; I50.9 Heart failure, unspecified; I11.0 Hypertensive heart disease with heart failure; M19.90 Unspecified osteoarthritis, unspecified site; Y90.9 Presence of alcohol in blood, level not specified; Z82.49 Family history of ischemic heart disease and other diseases of the circulatory system; Z72.89 Other problems related to lifestyle; Z87.891 Personal history of nicotine dependence; Z68.33 Body mass index [BMI] 33.0-33.9, adult; Z86.73 Personal history of transient ischemic attack (TIA), and cerebral infarction without residual deficits; Z81.8 Family history of other mental and behavioral disorders; Z79.51 Long term (current) use of inhaled steroids; Z79.01 Long term (current) use of anticoagulants; Z99.81 Dependence on supplemental oxygen
CPT/HCPCS: 36415; 71045; 71046; 80048; 80053; 82803; 83605; 83735; 83880; 84484; 85025; 85610; 85730; 86140; 87040; 87899; 93005; 99284; A9270-GY; J0696; J1956; J2930; J3411; J3475

== ENCOUNTER 2019-01-09 13:07 | Emergency (ER) | payer MEDICARE, OTHER, BC ==
[2019-01-09 13:34] VITALS: BP 116/75
--- NOTE | 2019-01-09 14:29 | UC ---
Laceration HPI - HPI Summary HPI Summary: CHIEF COMPLAINT and HPI: This is a 73-year-old white male with a complex past medical history who fell onto the edge of a dog cage yesterday and sustained an injury to the right lower quadrant of his abdomen. He is significantly tender to palpation in this area, but can walk and move with minimal distress. The pain has remained constant over the last 24 hours. The patient denies diffuse abdominal pain or problems with bowel movement or urination. . He is eating, drinking, urinating and having normal bowel movements NURSES NOTE REVIEWED: "laceration to right side of abd after falling ontop a dog cage door yesterday" VITAL SIGNS REVIEWED. Within normal limits except for a pulse of 110. The patient does have atrial fibrillation. - History Of Current Complaint Chief Complaint: UCLaceration Stated Complaint: LAC RIGHT SIDE 2IN Time Seen by Provider: 01/09/19 14:19 Pain Intensity: 8 - Allergies/Home Medications Allergies/Adverse Reactions: Allergies Allergy/AdvReac Type Severity Reaction Status Date / Time No Known Allergies Allergy Verified 01/09/19 13:34 PMH/Surg Hx/FS Hx/Imm Hx - Additional Past Medical History Additional PMH: PAST MEDICAL HISTORY is significantly positive for: Laminectomy to the left side of the spine, congestive heart failure, COPD, alcohol abuse, atrial fibrillation, hypertension. VISIT HISTORY REVIEWED. MEDICATION AND ALLERGY REVIEW contributory to current complaint: Patient is on . Anti-hypertensive medication: diltiazem, torsemide. FAMILY HISTORY is positive for: hypertension. SOCIAL HISTORY is significant for former smoker, lives with , retired. Other History Of: Negative For: Anticoagulant Therapy - Surgical History Surgical History: Yes Surgery Procedure, Year, and Place: 2 LT KNEE SCOPE. 2 RT KNEE SCOPE. 1 LT SHOULDER RCT. 4 RADIO FREQUENCY ABLASIONS IN BACK 08/29,08/28,06/16/14. APPENDECTOMY 1951. LASIK EYE. LUMBAR LAMINECTOMY 12/2014 [place] - Family History Known Family History: Positive: Cardiac Disease, Hypertension - Social History Alcohol Use: Daily Alcohol Amount: 1-5 drinks Substance Use Type: None Smoking Status (MU): Former Smoker Type: Cigarettes, Cigars Length of Time of Smoking/Using Tobacco: 7627-2242 Have You Smoked in the Last Year: No When Did the Patient Quit Smoking/Using Tobacco: 1973 - Immunization History Most Recent Influenza Vaccination: 2018 Most Recent Tetanus Shot: Unsure Most Recent Pneumonia Vaccination: unkown-says he has had it Review of Systems All Other Systems Reviewed And Are Negative: Yes Constitutional: Positive: Negative Respiratory: Positive: Negative. Negative: Shortness Of Breath Cardiovascular: Positive: Negative. Negative: Palpitations Gastrointestinal: Positive: Abdominal Pain. Negative: Vomiting, Diarrhea, Nausea - area of contusion Genitourinary: Positive: Negative Is Patient Immunocompromised?: No Physical Exam - Summary Physical Exam Summary: Appearance: The patient is well-appearing, is in no pain or distress, and is well-nourished. Eyes: Conjunctiva are clear. Pupils are equal and reactive to light and accommodation. Extra ocular muscle movement is intact. ENT: The hearing is grossly normal, the pharynx is normal, and the TMs are normal. There is no muffled or hoarse voice. No stridor. Neck: The neck is supple and there is no lymphadenopathy. Respiratory: The chest is nontender to palpation and without crepitus. The lungs are clear, there are normal breath sounds, and there is no respiratory distress. No wheezes, rales or rhonchi. Cardiovascular: Heart sounds reveal a regular rate and rhythm. There are no clicks, rubs or murmurs. There are no carotid bruits or thrills. Circulation is grossly intact. Abdomen: The abdomen is soft and nontender. There is no organomegaly. Bowel sounds are present and within normal limits. No point tenderness at McBurneys point. There is a 6 cm contusion with ecchymosis in the area of the right lower quadrant. There is another 3 cm concentric ring that also ecchymotic, but less so. There is induration center of this contusion and a 2.5 cm, crusted abrasion in the middle of the contusion. Examination of the abdomen is negative for peritoneal signs. Bowel sounds are present. There is no point tenderness over the spleen or the liver. Musculoskeletal: Strength is intact. The patient moves all extremities. Neurological: The patient is alert. Motor and sensory are examination grossly intact. Speech is normal. Psychological: The patient displays age appropriate behavior Skin: Negative for rashes. Vital Signs: Initial Vital Signs Temp 98 F 01/09/19 13:31 Pulse 110 01/09/19 13:31 Resp 19 01/09/19 13:31 BP 116/75 01/09/19 13:31 Pulse Ox 99 01/09/19 13:31 Laceration Course/Dx - Course/Dx Course Of Treatment: CHIEF COMPLAINT and HPI: This is a 73-year-old white male with a complex past medical history who fell onto the edge of a dog cage yesterday and sustained an injury to the right lower quadrant of his abdomen. He is significantly tender to palpation in this area, but can walk and move with minimal distress. The pain has remained constant over the last 24 hours. The patient denies diffuse abdominal pain or problems with bowel movement or urination. . He is eating, drinking, urinating and having normal bowel movements NURSES NOTE REVIEWED: "laceration to right side of abd after falling ontop a dog cage door yesterday" VITAL SIGNS REVIEWED. Within normal limits except for a pulse of 110. The patient does have atrial fibrillation. PAST MEDICAL HISTORY is significantly positive for: Laminectomy to the left side of the spine, congestive heart failure, COPD, alcohol abuse, atrial fibrillation, hypertension. VISIT HISTORY REVIEWED. MEDICATION AND ALLERGY REVIEW contributory to current complaint: Patient is on . Anti-hypertensive medication: diltiazem, torsemide. FAMILY HISTORY is positive for: hypertension. SOCIAL HISTORY is significant for former smoker, lives with , retired. REVIEW OF SYSTEMS is significantly positive for abdominal discomfort over area of bruise. PHYSICAL EXAMINATION is significantly positive for: 6 cm contusion with ecchymosis in the area of the right lower quadrant. There is another 3 cm concentric ring that also ecchymotic, but less so. There is induration center of this contusion and a 2.5 cm, crusted abrasion in the middle of the contusion. Examination of the abdomen is negative for peritoneal signs. Bowel sounds are present. There is no point tenderness over the spleen or the liver. MEDICAL DECISION MAKING: (Differential Diagnosis; Tests; Final Diagnosis): This is a 73-year-old male with a complex medical history who is on an anticoagulant and fell approximately 24 hours ago, sustaining a large bruise to his right abdomen. My first concern was for a internal injuries, but his examination was unremarkable except for a 8 cm contusion with induration at its center that is tender to palpation. I suspect that this is congealed blood underneath the skin that the patient suffered a some increased bleeding because his anticoagulant. My differential would include injury to the abdomen with peritoneal bleeding, but the physical examination does not support this diagnosis. I final diagnosis is contusion of the abdominal wall on the right side with an area of induration. PLAN: I discussed with the patient the need for rest and careful observation, and that he should go to the emergency department for any increased pain or abdominal abnormalities. MEDICATIONS REVIEWED. HYPERTENSION STATUS REVIEWED WITH PATIENT. - Differential Dx - Laceration/Wound Differental Diagnoses: Abscess, Laceration, Other - contusion - Diagnosis Provider Diagnosis: Contusion Discharge - Sign-Out/Discharge Documenting (check all that apply): Patient Departure All imaging exams completed and their final reports reviewed: No Studies - Discharge Plan Condition: Stable Disposition: HOME Patient Education Materials: Contusion in Adults (ED) Referrals: Deborah Ruiz MD [Primary Care Provider] - Additional Instructions: WE DISCUSSED: PLEASE SEEK CARE AT THE EMERGENCY DEPARTMENT IF SYMPTOMS WORSEN OR IF NEW SYMPTOMS DEVELOP. FOLLOW UP WITH YOUR PRIMARY CARE PHYSICIAN IF CONDITION CONTINUES BEYOND 3 DAYS WITHOUT IMPROVEMENT. We are open from 7 a.m. to 10 p.m. Call us with any questions or concerns. YOUR DIAGNOSIS IS: contusion of the wall of your abdomen on the right side; small abrasion as well. There is blood clotted under the skin, but your stomach examination was normal and there is no injury inside. YOUR PRESCRIPTION RECOMMENDATION IS: None; you can take Tylenol but not ibuprofen . OTHER INSTRUCTIONS: Rest for the next day or two; GO TO ED FOR ANY SWELLING OF THE AREA OR MORE PAIN IN THE AREA OF THE BRUISE OR THE ABDOMEN; OR ANY PROBLEMS WITH BOWEL MOVEMENTS. - Billing Disposition and Condition Condition: STABLE Disposition: Home
== END 2019-01-09 14:55 | disposition home or self-care (01) ==
LOC: UCEAST 13:07
DX: S30.1XXA Contusion of abdominal wall, initial encounter (principal); S30.811A Abrasion of abdominal wall, initial encounter; W18.00XA Striking against unspecified object with subsequent fall, initial encounter; Y92.9 Unspecified place or not applicable; I11.0 Hypertensive heart disease with heart failure; I50.9 Heart failure, unspecified; I48.91 Unspecified atrial fibrillation; Z79.01 Long term (current) use of anticoagulants; J44.9 Chronic obstructive pulmonary disease, unspecified; Z87.891 Personal history of nicotine dependence
CPT/HCPCS: 99211; G0463

== ENCOUNTER 2019-03-27 09:59 | Emergency (ER) | payer MEDICARE, OTHER, BC ==
[2019-03-27 10:17] VITALS: BP 139/81
--- NOTE | 2019-03-27 10:36 | UC ---
Lower Extremity/Ankle HPI - HPI Summary HPI Summary: Mr. Choudhury is 100 pound dog clipped him in the left knee about 8:30 this morning. He hit him in the lateral aspect of the knee forcing a valgus injury. He's taken a couple of Tylenol about an hour prior to presentation. - History of Current Complaint Chief Complaint: UCLowerExtremity Stated Complaint: LT LEG INJURY Time Seen by Provider: 03/27/19 10:24 Hx Obtained From: Patient Onset/Duration: Sudden Onset Severity Initially: Moderate Severity Currently: Severe Pain Intensity: 10 Aggravating Factor(s): Standing, Ambulation Alleviating Factor(s): Rest Able to Bear Weight: Yes - Allergies/Home Medications Allergies/Adverse Reactions: Allergies Allergy/AdvReac Type Severity Reaction Status Date / Time No Known Allergies Allergy Verified 03/27/19 10:17 Home Medications: Home Medications Acetaminophen [Tylophen] 1,000 mg PO ONCE PRN 03/27/19 [History Confirmed ] PMH/Surg Hx/FS Hx/Imm Hx Endocrine History: Dyslipidemia Cardiovascular History: Hypertension, Atrial Fibrillation Other History Of: Negative For: Anticoagulant Therapy - Surgical History Surgical History: Yes Surgery Procedure, Year, and Place: 2 LT KNEE SCOPE. 2 RT KNEE SCOPE. 1 LT SHOULDER RCT. 4 RADIO FREQUENCY ABLASIONS IN BACK 08/29,08/28,06/16/14. APPENDECTOMY 1951. LASIK EYE. LUMBAR LAMINECTOMY 12/2014 [place] - Family History Known Family History: Positive: Cardiac Disease, Hypertension - Social History Alcohol Use: Daily Alcohol Amount: 1-5 drinks Substance Use Type: None Smoking Status (MU): Former Smoker Type: Cigarettes, Cigars Length of Time of Smoking/Using Tobacco: [id number] Have You Smoked in the Last Year: No When Did the Patient Quit Smoking/Using Tobacco: 1973 - Immunization History Most Recent Influenza Vaccination: 2018 Most Recent Tetanus Shot: Unsure Most Recent Pneumonia Vaccination: unkown-says he has had it Review of Systems All Other Systems Reviewed And Are Negative: Yes Motor: Positive: Decreased ROM Neurovascular: Positive: Negative Musculoskeletal: Positive: Decreased ROM Neurological: Positive: Negative Physical Exam - Summary Physical Exam Summary: He is nontoxic in appearance with stable vital signs. Triage Information Reviewed: Yes Appearance: Well-Appearing, Pain Distress Vital Signs: Initial Vital Signs Temp 97.8 F 03/27/19 10:13 Pulse 109 03/27/19 10:13 Resp 18 03/27/19 10:13 BP 139/81 03/27/19 10:13 Pulse Ox 95 03/27/19 10:13 Vital Signs Reviewed: Yes ENT Exam: Normal Neck exam: Normal Musculoskeletal Exam: Other - He's tender to any range of motion of his knee. Neurological Exam: Normal Diagnostics - Radiology left knee Radiology Interpretation Completed By: Radiologist Summary of Radiographic Findings: No acute process Lower Extremity Course/Dx - Course Course Of Treatment: He's had a couple surgeries on both of his knees in the past and took a good blow to the left knee today. He is tender to any range of motion and will need to get some inflammation down before he can be examined properly. I will place him in a knee immobilizer. He has crutches at home already. Follow-up with orthopedics. - Differential Dx/Diagnosis Provider Diagnosis: Knee injury Discharge - Sign-Out/Discharge Documenting (check all that apply): Patient Departure All imaging exams completed and their final reports reviewed: Yes - Discharge Plan Condition: Stable Disposition: HOME Patient Education Materials: Knee Immobilizer (ED), Knee Pain (ED) Referrals: Deborah Ruiz MD [Primary Care Provider] - Mike Britton MD [Medical Doctor] - - Billing Disposition and Condition Condition: STABLE Disposition: Home
== END 2019-03-27 11:30 | disposition home or self-care (01) ==
LOC: UCEAST 09:59
DX: S89.92XA Unspecified injury of left lower leg, initial encounter (principal); W54.1XXA Struck by dog, initial encounter; Y93.9 Activity, unspecified; Y92.9 Unspecified place or not applicable; I10 Essential (primary) hypertension; Z87.891 Personal history of nicotine dependence
CPT/HCPCS: 99212; G0463

== ENCOUNTER 2019-03-31 10:14 | Emergency (ER) | payer MEDICARE, OTHER, BC ==
--- NOTE | 2019-03-31 10:32 | ED ---
Lower Extremity - HPI Summary HPI Summary: This pt is a 73 y/o male presenting to [facility] via EMS for left knee pain s/p injury on 03/27/19. Pt reports his 100 lbs dog was running and hit him with full force directly on the lateral aspect of the left knee. He notes he went to Urgent Care that day and had a left knee XR that was negative for a fracture or dislocation. Pt states his left knee is swollen and has been ambulating with crutches since then. Pt reports he had a bottle of oxycodone that was prescribed by Dr. Mercado in the past but that had in 2017. He called the pharmacy and was told the medication was still good. Pt has been taken oxycodone 1 every 6 hours since 2 days ago without any relief. PMHx includes 2 knee scopes on both knees. Pt is requesting an MRI. - History of Current Complaint Chief Complaint: EDExtremityLower Stated Complaint: LEFT KNEE INJURY PER EMS Time Seen by Provider: 03/31/19 10:23 Hx Obtained From: Patient Mechanism Of Injury: Direct Blow Onset of Pain: Days Onset/Duration: Still Present Severity Currently: Mild Pain Intensity: 2 Pain Scale Used: 0-10 Numeric Timing: Lasting Days Location: Is Discrete @ - left knee Associated Signs And Symptoms: Positive: Swelling, Knee Pain - left Aggravating Factor(s): Movement Alleviating Factor(s): Rest Able to Bear Weight: No - Allergies/Home Medications Allergies/Adverse Reactions: Allergies Allergy/AdvReac Type Severity Reaction Status Date / Time No Known Allergies Allergy Verified 03/27/19 10:17 Home Medications: Home Medications Montelukast Sodium TAB* [Singulair 10 MG TAB*] 10 mg PO DAILY 03/31/19 [History Confirmed 03/31/19] PMH/Surg Hx/FS Hx/Imm Hx Endocrine/Hematology History: Denies: Hx Anticoagulant Therapy, Hx Diabetes, Hx Thyroid Disease Cardiovascular History: Reports: Hx Angina, Hx Atrial Fibrillation, Hx Congestive Heart Failure, Hx Hypertension - TREATED WITH MEDICATION Denies: Hx Myocardial Infarction, Hx Pacemaker/ICD, Hx Syncope Respiratory History: Reports: Hx Chronic Obstructive Pulmonary Disease (COPD), Hx Sleep Apnea Denies: Hx Asthma History: Denies: Hx Dialysis, Hx Renal Disease Musculoskeletal History: Reports: Hx Arthritis, Hx Back Problems, Hx Gout Sensory History: Denies: Hx Contacts or Glasses, Hx Hearing Aid Opthamlomology History: Denies: Hx Contacts or Glasses Neurological History: Denies: Hx Dementia, Hx Migraine, Hx Seizures Psychiatric History: Denies: Hx Panic Disorder, Hx Substance Abuse - Surgical History Surgical History: Yes Surgery Procedure, Year, and Place: 2 LT KNEE SCOPE. 2 RT KNEE SCOPE. 1 LT SHOULDER RCT. 4 RADIO FREQUENCY ABLASIONS IN BACK 08/29,08/28,06/16/14. APPENDECTOMY 1951. LASIK EYE. LUMBAR LAMINECTOMY 12/2014 [facility] Hx Anesthesia Reactions: No Infectious Disease History: No Infectious Disease History: Denies: Hx Hepatitis, Hx Human Immunodeficiency Virus (HIV), Traveled Outside the [place] in Last 30 Days - Family History Known Family History: Positive: Cardiac Disease, Hypertension - Social History Alcohol Use: Daily Alcohol Amount: 1-5 drinks Substance Use Type: Reports: None Smoking Status (MU): Former Smoker Type: Cigarettes, Cigars Length of Time of Smoking/Using Tobacco: [id number] Have You Smoked in the Last Year: No Review of Systems Negative: Fever, Chills Cardiovascular: Negative Respiratory: Negative Positive: Nausea Musculoskeletal: Other - POSITIVE: left knee pain Positive: Edema - left knee All Other Systems Reviewed And Are Negative: Yes Physical Exam - Summary Physical Exam Summary: VITAL SIGNS: Reviewed. GENERAL: Patient is a well-developed and nourished male who is lying comfortable in the stretcher. Patient is not in any acute respiratory distress. HEAD AND FACE: No signs of trauma. No ecchymosis, hematomas or skull depressions. No sinus tenderness. EYES: PERRLA, EOMI x 2, No injected conjunctiva, no nystagmus. EARS: Hearing grossly intact. Ear canals and tympanic membranes are within normal limits. MOUTH: Oropharynx within normal limits. NECK: Supple, trachea is midline, no adenopathy, no JVD, no carotid bruit, no c- spine tenderness, neck with full ROM. CHEST: Symmetric, no tenderness at palpation LUNGS: Clear to auscultation bilaterally. No wheezing or crackles. CVS: Regular rate and rhythm, S1 and S2 present, no murmurs or gallops appreciated. ABDOMEN: Soft, non-tender. No signs of distention. No rebound, no guarding, and no masses palpated. Bowel sounds are normal. EXTREMITIES: Left lower extremity: Decreased ROM of left knee. Swelling of left knee. No erythema, no deformity. Tenderness to palpation at left knee. NEURO: Alert and oriented x 3. No acute neurological deficits. Speech is normal and follows commands. SKIN: Dry and warm Triage Information Reviewed: Yes Vital Signs On Initial Exam: Initial Vitals Temp Pulse Resp BP Pulse Ox 98.2 F 79 20 119/71 97 03/31/19 10:24 03/31/19 10:24 03/31/19 10:24 03/31/19 10:24 03/31/19 10:24 Vital Signs Reviewed: Yes Diagnostics - Vital Signs Vital Signs Temp Pulse Resp BP Pulse Ox 03/31/19 10:24 98.2 F 79 20 119/71 97 - Laboratory Lab Statement: Any lab studies that have been ordered have been reviewed, and results considered in the medical decision making process. - Radiology Left knee XR (from 03/27/19) Radiology Interpretation Completed By: Radiologist Summary of Radiographic Findings: IMPRESSION: Osteoarthritis. No acute osseous injury. If symptoms persist, recommend repeat imaging. Dr. Gibson has reviewed this report. Lower Extremity Course/Dx - Course Assessment/Plan: Pt is a 73 y/o male presenting to [facility] via EMS for left knee pain s/p injury on 03/27/19. Pt reports his 100 lbs dog was running and hit him with full force directly on the lateral aspect of the left knee. He notes he went to Urgent Care that day and had a left knee XR that was negative for a fracture or dislocation. Pt states his left knee is swollen and has been ambulating with crutches since then. Pt reports he had a bottle of oxycodone that was prescribed by Dr. Mercado in the past but that had in 2017. He called the pharmacy and was told the medication was still good. Pt has been taken oxycodone 1 every 6 hours since 2 days ago without any relief. PMHx includes 2 knee scopes on both knees. Patients knee is swollen, with decreased range of motion, and the x-ray in the urgent care shows no fracture or dislocation therefore I believe that the patient has a tendon or meniscus injury. Therefore, I recommended the patient to use a knee brace, use crutches , and take pain medications. However the patient was very insistent to get an MRI. I explained at this point it would not be of benefit to get an MRI and it would be better to get an orthopedic consult. Therefore I discussed the case with Dr. oSrensen from orthopedics and she recommends to place the patient in a knee immobilizer, crutches and pain medication, and follow up with orthopedics tomorrow. However the patient was still very insistent to get an MRI to the point where he reported I will not leave the hospital without an MRI. Therefore I had Dr. Horton, medical research tech, speak with the patient. Afterwards the patient agreed to see orthopedics tomorrow and take pain medication as well as use the knee brace and crutches. Therefore the patient was given 1 Percocet and was discharged home with follow-up from orthopedics tomorrow. - Diagnoses Provider Diagnoses: Left knee pain, Left knee injury - Physician Notifications Discussed Care Of Patient With: Carmel Sorensen Time Discussed With Above Provider: 10:40 Instructed by Provider To: Other - Discussed with Dr. Sorensen, orthopedist, who reports patient does not need an emergent MRI. Pt has seen Dr. Mercado in the past and pt responds well to cortisone shots. Dr. Sorensen recommends discharging the pt home with a knee immobilizer and Dr. Mercado will see pt tomorrow for a cortisone injection and further treatment. Discharge - Sign-Out/Discharge Documenting (check all that apply): Patient Departure - Discharge home Patient Received Moderate/Deep Sedation with Procedure: No - Discharge Plan Condition: Stable Disposition: HOME Prescriptions: Oxycodone HCl/Acetaminophen [Percocet] 1 tab PO Q6H PRN #10 tab MDD 4 PRN Reason: Pain Patient Education Materials: Knee Pain (ED) Referrals: Deborah Ruiz MD [Primary Care Provider] - Mike Strauss MD [Medical Doctor] - Additional Instructions: FOLLOW UP DR. STRAUSS, ORTHOPEDIST, TOMORROW. RETURN TO THE ED FOR ANY NEW OR WORSENING SYMPTOMS. - Billing Disposition and Condition Condition: STABLE Disposition: Home - Attestation Statements Document Initiated by Scribe: Yes Documenting Scribe: Bindu Pollack Provider For Whom Scribe is Documenting (Include Credential): Heber Gibson MD Scribe Attestation: Bindu Holland, scribed for Heber Gibson MD on 03/31/19 at 2030. Scribe Documentation Reviewed: Yes Provider Attestation: The documentation as recorded by the scribe, Bindu Pollack accurately reflects the service I personally performed and the decisions made by me, Heber Gibson MD Status of Scribe Document: Viewed
[2019-03-31] MEDS ORDERED: oxyCODONE/Acetamin 5/325 MG* TAB PO ONE (12:04)
[2019-03-31 12:20] VITALS: BP 148/88
== END 2019-03-31 12:18 | disposition home or self-care (01) ==
LOC: ED 10:14
DX: S89.92XA Unspecified injury of left lower leg, initial encounter (principal); W54.1XXA Struck by dog, initial encounter; Y92.9 Unspecified place or not applicable; I48.91 Unspecified atrial fibrillation; I50.9 Heart failure, unspecified; I11.0 Hypertensive heart disease with heart failure; I20.9 Angina pectoris, unspecified; J44.9 Chronic obstructive pulmonary disease, unspecified; Z87.891 Personal history of nicotine dependence; Z79.899 Other long term (current) drug therapy
CPT/HCPCS: 99283; A9270-GY

== ENCOUNTER 2019-05-16 13:03 | Emergency (ER) | payer MEDICARE, OTHER, BC ==
--- OUTSIDE RECORDS SUMMARY | 2019-05-16 13:18 | XMS REPORT | Summary of Care ---
:1945 Author Organization [facility] Address [address] [facility] [place] [address] Care Team Providers Name Role Phone Deborah Ruiz MD Primary Care Provider Reason for Visit Reason Comments Follow Up left knee Encounter Details Date Type Department Care Team Description 05/02/2019 Office Visit [facility] - Lul Viera, Closed fracture of [place] left tibial plateau [address] [facility] with routine healing, [address] [place] [address] [place] [address] (Primary Dx) [phone] Allergies Active Allergy Reactions Severity Noted Date Comments Environmental Respiratory Reaction 03/15/2011 documented as of this encounter (statuses as of 05/02/2019) Medications Medication Sig Dispensed Refills Start Date End Date Status albuterol HFA Take 2 Puffs by 3 Inhaler 3 02/20/2018 Active (VENTOLIN) 108 (90 inhalation EVERY Base) MCG/ACT SIX HOURS Inhalation Aero NEEDED (SOB). SolnIndications: Pneumonia of right upper lobe due to infectious organism (HCC) Sildenafil Citrate Take 1 Tab by 27 Tab 3 05/27/2018 Active (VIAGRA) 100 MG Oral mouth DAILY TabIndications: Other NEEDED (ED). male erectile dysfunction diltiazem (CARDIZEM Take 1 Cap by 90 Cap 3 07/22/2018 Active CD) 240 MG Oral mouth DAILY. CAPSULE SR 24 HRIndications: Permanent atrial fibrillation (HCC) XARELTO 20 MG Oral take 1 tablet by 90 Tab 3 01/07/2019 Active TabIndications: mouth once daily Chronic atrial fibrillation (HCC) allopurinol (ZYLOPRIM) take 1/2 tablet by 45 Tab 5 03/19/2019 Active 300 MG Oral mouth once daily TabIndications: Generalized edema Rosuvastatin Calcium take 1 tablet by 90 Tab 3 03/19/2019 Active (CRESTOR) 40 MG Oral mouth once daily TabIndications: Mixed --STOP PRAVASTATIN hyperlipidemia BREO ELLIPTA 100-25 take 1 inhalation 3 Each 6 03/31/2019 Active MCG/INH Inhalation by mouth once AEROSOL POWDER, BREATH daily ACTIVATEDIndications: Asthma with COPD (chronic obstructive pulmonary disease) (HCC) torsemide (DEMADEX) 20 take 1 tablet by 90 Tab 3 03/31/2019 Active MG Oral mouth once daily TabIndications: COLBERT (dyspnea on exertion) tramadol (ULTRAM) 50 Take 1 Tab by 18 Tab 0 04/08/2019 Active MG Oral mouth EVERY EIGHT TabIndications: HOURS NEEDED Chronic knee pain, (pain due to unspecified laterality fracture). Max Daily Amount: 150 mg. colchicine (COLCRYS) Take 1 Tab by 20 Tab 1 04/26/2019 Active 0.6 MG Oral Tab mouth EVERY 4-6 HOURS PRN (pain). documented as of this encounter (statuses as of 05/02/2019) Active Problems Problem Noted Date Morbid obesity, unspecified obesity type 01/13/2019 Prediabetes 12/10/2018 Gout 12/10/2018 Asthma with COPD (chronic obstructive pulmonary disease) 10/03/2018 History of stroke 02/05/2018 Chronic bilateral low back pain without sciatica 01/11/2018 Allergic rhinitis 05/16/2017 Primary osteoarthritis of right knee 04/04/2017 Overview: Added automatically from request for surgery [id number] Pseudophakia of both eyes 02/28/2017 Acute bilateral thoracic back pain 11/29/2016 Class 1 obesity with body mass index (BMI) of 32.0 to 32.9 in adult 07/03/2016 FILIPE (obstructive sleep apnea) 07/30/2014 Atrial fibrillation 07/15/2014 Overview: Admitted [facility] with rapid ventricular rate. 07/26/14 and nuclear stress Negative on this admission. Essential hypertension, benign 08/29/2012 Erectile dysfunction 03/05/2012 BMI 34.0-34.9,adult 02/09/2012 Overview: sustained wt reduction with portion control and sustained routine exercise. Set realistic goal of 1# wt reduction /week set 10 week goals. Varicose veins of leg with pain 03/15/2011 Hyperlipidemia 06/24/2008 Obesity 06/24/2008 Overview: 05/23/2007, BMI: 29.98 Personal history of colonic polyps 06/24/2008 Overview: Colonoscopy, 2006, one adenomatous polyp and some hypoplastic polyps. Next recommended 3(three) years. 08/01/2007, Colonoscopy, Dr. Franklin, one hyperplastic polyp. Next recommended 5 (five) years. H/O: BPH (Benign Prostatic Hypertrophy) 06/24/2008 Hypertension 06/24/2008 CHF (congestive heart failure), NYHA class I, chronic, diastolic Overview: with pneumonia in hospital 12/19/17 FILIPE on CPAP documented as of this encounter (statuses as of 05/02/2019) Resolved Problems Problem Noted Date Resolved Date Community acquired pneumonia of right lower lobe of lung 10/12/20182018 Pneumonia of right upper lobe due to infectious organism 01/29/20182017 Shoulder pain, left 07/31/2013 01/11/2018 BMI 29.0-29.9,adult 02/09/2012 01/11/2018 Overview: sustained wt reduction with portion control and sustained routine exercise. Set realistic goal of 1# wt reduction /week set 10 week goals. Torn meniscus 06/24/2008 01/11/2018 Overview: S/P repair 10/16/2006 in [place], Replaced inactive diagnosis Hypertension 06/24/2008 08/29/2012 H/O: Left Rotator Cuff Tear 06/24/2008 04/13/2009 Overview: S/P repair in Pain in joint, lower leg 11/12/2006 04/13/2009 documented as of this encounter (statuses as of 05/02/2019) Immunizations Name Administration Dates Next Due Depo Medrol (40mg) 11/10/2011 Influenza (IM) Preservative Free 07/07/2015, 06/24/2014, 09/15/2011, 06/25/2008 Influenza Vaccine High Dose 06/19/2018, 08/17/2017 PNEUMOCOCCAL POLYSACCHARIDE VACCINE 08/04/2015, 10/27/2013 Pneumococcal Conjugate(13 Valent) 05/16/2017 TDAP Vaccine 07/02/2017 ZOSTER (SHINGRIX) VACCINE 10/28/2018, 07/22/2018, 07/20/2018 ZOSTER (ZOSTAVAX) VACCINE 11/17/2014 documented as of this encounter Social History Tobacco Use Types Packs/Day Years Used Date Former Smoker Cigars 1 12 Quit: 1973 Smokeless Tobacco: Never Used Comments: cigars intermittently; 2 a week in summer Alcohol Use Drinks/Week oz/Week Comments Yes 1 Glasses of wine 31.0 1 Cans of beer 1 Shots of liquor 28 Standard drinks or equivalent Sex Assigned at Date Recorded Not on file Job Start Date Occupation Industry Not on file Not on file Not on file Travel History Travel Start Travel End No recent travel history available. documented as of this encounter Last Filed Vital Signs Vital Sign Reading Time Taken Comments Blood Pressure - - Pulse - - Temperature - - Respiratory Rate 16 05/02/2019 9:22 AM EDT Oxygen Saturation - - Inhaled Oxygen Concentration - - Weight 105.2 kg (232 lb) 05/02/2019 9:22 AM EDT Height 177.8 cm (5' 10") 05/02/2019 9:22 AM EDT Body Mass Index 33.29 05/02/2019 9:22 AM EDT documented in this encounter Progress Notes Lul Viera MD - 05/02/2019 9:15 AM EDT PATIENT: Aleksey Choudhury : 1945 DATE OF SERVICE: 05/02/2019 SUBJECTIVE: Aleksey Choudhury is a 73-y.o. male. Here for follow up of left knee lateral tibial plateau fracture . He is doing well. OBJECTIVE: Resp 16 | Ht 5' 10" (1.778 m) | Wt 232 lb (105.2 kg) | BMI 33.29 kg/m No lateral tenderness.. No swelling. Neuro intact ASSESSMENT: ICD-9-CM ICD-10-CM 1. Closed fracture of left tibial plateau with routine healing, subsequent encounter V54.16 S82.142DXR KNEE 1 OR 2 VIEWS LEFT PLAN: Advance weight bearing Brace of in one week follow up in Author: Lul Viera MD 05/02/2019 09:30 Portions of this note were made with voice recognition software documented in this encounter Plan of Treatment Date Type Specialty Care Team Description 05/30/2019 Office Visit Orthopedics Lul Viera MD [address] [place] [address] 06/02/2019 Ocular Visit Optometry Ayden Anders, OD [address] [place] [address] 07/09/2019 Office Visit Cardiology Mike Montenegro MD [address] [place] [address] [phone] 09/04/2019 Appointment Pulmonary 09/04/2019 Office Visit Pulmonary Robyn Barahona MD [address] [place] [address] Name Type Priority Associated Diagnoses Date/Time XR KNEE 1 OR 2 VIEWS Imaging Routine Closed fracture of left 05/02/2019 9: 20 AM EDT LEFT tibial plateau with routine healing, subsequent encounter Name Type Priority Associated Diagnoses Order Schedule XR KNEE 1 OR 2 VIEWS Imaging Routine Closed fracture of left Expected: , LEFT tibial plateau with Expires: 05/01/2020 routine healing, subsequent encounter Health Maintenance Due Date Last Done Comments MEDICARE ANNUAL WELLNESS 1945 VISIT INFLUENZA VACCINE (#1) 2019 06/19/2018, 08/17/2017, 07/07/2015, Additional history exists DEPRESSION SCREENING 12/28/2019 12/27/2018, 10/02/2011 DIABETES SCREENING 03/04/2020 03/04/2019, 03/04/2019, 01/31/2019, Additional history exists COLONOSCOPY SCREENING 03/19/2020 03/19/2017, 03/19/2017, 12/13/2016, Additional history exists LIPID DISORDER SCREENING 03/19/2020 03/19/2019, 07/17/2018, 03/23/2018, Additional history exists FALL RISK ASSESSMENT 04/17/2020 04/17/2019, 04/17/2019 PNEUMOCOCCAL 65+YRS Completed 05/16/2017, 08/04/2015, 10/27/2013 AAA SCREENING/SURVEILLANCE Completed 08/02/2018, 04/18/2018 ZOSTER IMMUNIZATION SERIES Completed 10/28/2018, 07/22/2018, 07/20/2018, Additional history exists HPV IMMUNIZATION SERIES Aged Out No longer eligible based on patient's age to complete this topic MENINGOCOCCAL VACCINE IMM Aged Out No longer eligible based on patient's age to complete this topic documented as of this encounter Goals Goal Patient Goal Associated Recent Patient-Stated? Author Type Problems Progress Blood Pressure Blood Pressure Essential 120/70 No Abdullahivannesarenetta, < 140/90 hypertension, (04/17/2019 Johnnie, benign 12:16 PM EDT) Note: Hypertension Care Plan Based on the patient's clinical history and according to JNC 8 guidelines target blood pressure goal is less than 140/90. Based on the patient's last blood pressure of BP: 102/72 mmHg the patient is at at goal. As your provider, it is important that I advise you regarding: your current medications and help you with any challenges you may face taking your medications as directed (ex. instructions, cost, side effects, and interactions). Important lifestyle changes: weight reduction and diet your clinical goals and how you can achieve success: weight reduction and diet improvements medication management: adjusted medications as appropriate patient education/self-management tools provided: Current self-management tools adequate To successfully manage my Hypertension I will: monitor my blood pressure daily, understanding that my goal is less than 140/ 90 per my healthcare provider's recommendation. I will schedule an appointment with my provider if consistent abnormal readings greater than 160/100. take medications every day as prescribed by my healthcare provider and if unable to take them I will discuss with my provider. monitor for symptoms of chest pain, chest tightness/pressure, irregular heartbeat, persistent dizziness, radiating arm pain, and neck or jaw pain. If any of these symptoms are noticed I will seek medical attention immediately by calling 911 exercise/walk gets plety of exercise. 5 day(s) per week. If I experience chest pain, chest tightness, or shortness of breath, I will seek medical attention immediately. follow a diet rich in fruits, vegetables, and low-fat dairy products with reduced content of saturated & total fat. I will reduce my sodium intake daily. An example is the DASH diet. To obtain more information please refer to the DASH Eating Plan listed in Educational Resources. record my blood pressure results. TuneStarsrie is safe and secure way for you to do this in your medical record online. try to obtain an ideal body weight. My recent weight was Weight: 211 lb 8 oz (95.936 kg). My weight loss goal for my next office visit is 205#. limit alcohol consumption. For men two drinks per day and women one drink per day. if currently smoking, will discuss how to quit smoking with my healthcare provider and work towards quitting. Educational Resources: National Heart, Lung, & Blood [place] http://nhlbi.nih.gov/hbp/index.html The DASH Diet Eating Plan http://www.nhlbi.nih.gov/health/health-topics/ topics/dash/ Academy of Nutrition & DIetetics http://eatright.org National Smoking Cessation Site http://smokefree.gov Blood Pressure < Blood Pressure 120/70 (04/17/2019 Deborah Reyes 150/90 12:16 PM EDT) MD Janusz Note: This is an individualized treatment (blood pressure) goal for Aleksey Choudhury : Displayed above (on the left) is your goal for blood pressure control. Your most recent blood pressure is also shown above, on the right. You should try to achieve blood pressures that are lower than your goal listed above (on the left). Weight increase vs. 18 CHF 8 (05/02/2019 9:22 AM Deborah Reyes mo min (lbs) < 5 EDT) Note: This is an individualized treatment (congestive heart failure, CHF) goal for Aleksey Choudhury: Displayed above (on the right) is how many pounds you are in excess of your lowest weight over the past 18 months. Note that lower numbers are better. Excessive weight gain often indicates fluid reten tion and worsening heart failure. You should contact your doctor immediately if the above number is too high (above your goal, the number on the left). Weight loss vs. 18 Lifestyle 6.9 (05/02/2019 9:22 AM Deborah Reyes mo max (lbs) >= 10 EDT) Note: This is an individualized lifestyle goal for Aleksey Choudhury: Your body mass index (BMI) is more than 30. You should lose weight. A reasonable starting goal is to lose 10 pounds. Displayed above is how many pounds you have lost thus far towards your 10 pound weight loss goal. Consume a [id number] diet Lifestyle No Deborah Ruiz MD Note: This is an individualized lifestyle goal for Aleksey Choudhury: Please do not add additional salt to your food. Additional salt may lead to fluid retention and worsen your congestive heart failure. Keep immunizations current Lifestyle No Deborah Ruiz MD Note: This is an individualized lifestyle goal for Aleksey Choudhury: Please be sure to keep up-to-date on recommended immunizations. For example, this would include a yearly influenza vaccine. Immunization status can be seen by looking at the Health Maintenance sections of your e[employer], Plan of Care, and any After Visit Summaries. Take all prescribed medications as Self-management No Deborah Ruiz MD directed Note: This is an individualized self-management goal for Aleksey Choudhury: Please take all prescribed medications as directed. 1. Do not skip doses. If you cannot afford your medications, talk with your doctor. 2. Use a pill reminder system such as a pill box if needed. Your pharmacist can help you with this. 3. Contact your Pharmacy 5 days before your medication runs out. If you cannot take your medications for any reasons, talk with your doctor. 4. Please bring all of your medication bottles and inhalers (or a list of all your medications/inhalers) with you to every visit. Potential barriers to meeting all of your care plan goals will continue to be addressed on an ongoing basis. Check your weight daily Self-management No Deborah Ruiz MD Note: This is an individualized self-management goal for Aleksey Choudhury: Please check your weight daily. Refer to the accompanying CHF treatment goal and call your doctor immediately for further instructions on how to respond to unexpected weight gain. documented as of this encounter Implants Implanted Type Area Liner Worker Device Shelf Model / Serial Identifier Expiration Date / Lot Iol, [id number] 20.5 Diopter - [id number] Right: STORZ [id number] / Implanted: Qty: 1 on 11/27/2016 by Brennan Quiroga MD at [facility] Eye [id number] / Iol, [id number] 20.0 Diopter - [id number] Left: Eye STORZ [id number] / Implanted: Qty: 1 on 02/21/2017 by Brennan Quiroga MD at [facility] [id number] / documented as of this encounter Results Not on filedocumented in this encounter Visit Diagnoses Diagnosis Closed fracture of left tibial plateau with routine healing, subsequent encounter - Primary documented in this encounter Insurance Payer Benefit Plan / Subscriber ID Effective Dates Phone Address Type Group MEDICARE MEDICARE PART A xxxxxxxxxxx 2010-Presen Medicare & B t AETNA COMMERCIAL AETNA xxxxxxxxxx 2010-Prese Aetna nt [facility] EMPIRE [facility]-EMPIRE PLAN xxxxxxxxx 2016-Present [employer] Guarantor Name Account Type Relation to Date of Phone Billing Patient Address Aleksey Choudhury Personal/Family 1945 [address] (Home) [place], [place] [phone] (Work) documented as of this encounter
[2019-05-16 15:38] VITALS: BP 142/88
--- NOTE | 2019-05-16 15:40 | ED ---
Lower Extremity - HPI Summary HPI Summary: This patient is a 73-year-old male with a history of a recent tibial plateau fracture who has been wearing a brace and recently started ambulating more onto the leg with minimal discomfort until about 1 week ago when the area began to swell. He is endorsing swelling to the posterior portion of the knee as well as the calf. He is currently on xarelto for A. fib. Denies any shortness of breath. He is endorsing pain to the posterior knee, mild tenderness to the calf without pain to the anterior portion of the knee or ankle. - History of Current Complaint Chief Complaint: EDExtremityLower Stated Complaint: POSS BLOOD CLOT IN LEFT LEG PER PT Time Seen by Provider: 05/16/19 13:42 Hx Obtained From: Patient Onset of Pain: Hours Onset/Duration: Hours Severity Initially: Moderate Severity Currently: Moderate Pain Intensity: 2 Pain Scale Used: 0-10 Numeric Timing: Constant Location: Is Discrete @ - left sided posterior knee pain/tenderness Character Of Pain: Aching Associated Signs And Symptoms: Positive: Swelling. Negative: Redness, Bruising , Weakness Aggravating Factor(s): Standing, Ambulation Alleviating Factor(s): Rest Able to Bear Weight: No - Risk Factors Gout Risk Factors: Negative Septic Arthritis Risk Factor: Negative - Allergies/Home Medications Allergies/Adverse Reactions: Allergies Allergy/AdvReac Type Severity Reaction Status Date / Time No Known Allergies Allergy Verified 03/27/19 10:17 Home Medications: Home Medications Albuterol HFA INHALER* [Ventolin HFA Inhaler*] 2 puff INH Q6H PRN 05/16/19 [ History Confirmed 05/16/19] Colchicine* [Colcrys*] 0.6 mg PO .Q4-6H PRN 05/16/19 [History Confirmed 05/16/19 ] traMADol TAB* [Ultram*] 50 mg PO Q8H PRN 05/16/19 [History Confirmed 05/16/19] PMH/Surg Hx/FS Hx/Imm Hx Previously Healthy: Yes Endocrine/Hematology History: Denies: Hx Anticoagulant Therapy, Hx Diabetes, Hx Thyroid Disease Cardiovascular History: Reports: Hx Angina, Hx Atrial Fibrillation, Hx Congestive Heart Failure, Hx Hypertension - TREATED WITH MEDICATION Denies: Hx Myocardial Infarction, Hx Pacemaker/ICD, Hx Syncope Respiratory History: Reports: Hx Chronic Obstructive Pulmonary Disease (COPD), Hx Sleep Apnea Denies: Hx Asthma History: Denies: Hx Dialysis, Hx Renal Disease Musculoskeletal History: Reports: Hx Arthritis, Hx Back Problems, Hx Gout Sensory History: Denies: Hx Contacts or Glasses, Hx Hearing Aid Opthamlomology History: Denies: Hx Contacts or Glasses Neurological History: Denies: Hx Dementia, Hx Migraine, Hx Seizures Psychiatric History: Denies: Hx Panic Disorder, Hx Substance Abuse - Surgical History Surgery Procedure, Year, and Place: 2 LT KNEE SCOPE. 2 RT KNEE SCOPE. 1 LT SHOULDER RCT. 4 RADIO FREQUENCY ABLASIONS IN BACK 08/29,08/28,06/16/14. APPENDECTOMY 1951. LASIK EYE. LUMBAR LAMINECTOMY 12/2014 MELANIE Hx Anesthesia Reactions: No - Immunization History Hx Pertussis Vaccination: No Immunizations Up to Date: Yes Infectious Disease History: No Infectious Disease History: Denies: Hx Hepatitis, Hx Human Immunodeficiency Virus (HIV), Traveled Outside the [place] in Last 30 Days - Family History Known Family History: Positive: Cardiac Disease, Hypertension - Social History Occupation: Unemployed Lives: With Family Alcohol Use: Daily Alcohol Amount: 1-5 drinks Hx Substance Use: No Substance Use Type: Reports: None Smoking Status (MU): Former Smoker Type: Cigarettes, Cigars Length of Time of Smoking/Using Tobacco: [id number] Have You Smoked in the Last Year: No Review of Systems Constitutional: Negative Negative: Fever, Chills, Fatigue, Skin Diaphoresis Negative: Chest Pain Negative: Shortness Of Breath, Cough Negative: Abdominal Pain, Vomiting, Diarrhea, Nausea Genitourinary: Negative Positive: no symptoms reported, see HPI Positive: Arthralgia - left posterior knee pain Skin: Negative Neurological: Negative All Other Systems Reviewed And Are Negative: Yes Physical Exam Triage Information Reviewed: Yes Vital Signs On Initial Exam: Initial Vitals Temp Pulse Resp BP Pulse Ox 97.8 F 90 16 142/75 97 05/16/19 13:06 05/16/19 13:06 05/16/19 13:06 05/16/19 13:06 05/16/19 13:06 Vital Signs Reviewed: Yes Appearance: Positive: Well-Appearing, Well-Nourished Skin: Positive: Warm, Skin Color Reflects Adequate Perfusion Head/Face: Positive: Normal Head/Face Inspection Eyes: Positive: EOMI, ANDERSON, Conjunctiva Clear Neck: Positive: Supple, No Lymphadenopathy Respiratory/Lung Sounds: Positive: Clear to Auscultation, Breath Sounds Present Cardiovascular: Positive: RRR, Pulses are Symmetrical in both Upper and Lower Extremities Musculoskeletal: Positive: Normal, Strength/ROM Intact Neurological: Positive: Speech Normal Psychiatric: Positive: Normal, Affect/Mood Appropriate Diagnostics - Vital Signs Vital Signs Temp Pulse Resp BP Pulse Ox 05/16/19 14:39 99 151/86 97 05/16/19 14:34 90 151/86 96 05/16/19 14:33 95 96 05/16/19 13:06 97.8 F 90 16 142/75 97 - Laboratory Lab Statement: Any lab studies that have been ordered have been reviewed, and results considered in the medical decision making process. Lower Extremity Course/Dx - Course Course Of Treatment: This patient is evaluated for left posterior knee pain and tenderness with swelling. Continues to remain ambulatory. He was able to call his orthopedic physician today who recommended he come to the ED due to swelling to rule out DVT. Patient is currently on Xarelto. DVT US obtained: No evidence of DVT is identified. Likely hematoma in the popliteal fossa as described above. This measures 9.1 x 1.7 x 4.9 cm. Peroneal veins are limited in evaluation. He is to call his orthopedic surgeon immediately and discuss results. At this time, he will remain on his xarelto and stefani wrap the knee. - Diagnoses Differential Diagnosis/HQI/PQRI: Positive: Sprain, Strain Provider Diagnoses: Hematoma Discharge ED - Sign-Out/Discharge Documenting (check all that apply): Patient Departure Patient Received Moderate/Deep Sedation with Procedure: No - Discharge Plan Condition: Stable Disposition: HOME Patient Education Materials: Hematoma (ED) Referrals: Deborah Ruiz MD [Primary Care Provider] - Additional Instructions: Please call your ortho MD and let him know your results Elevate as much as possible (above the heart) - Billing Disposition and Condition Condition: STABLE Disposition: Home - Attestation Statements Provider Attestation: I was available for consult. This patient was seen by the [facility]. The patient was not presented to, seen by, or examined by me. Juan C Santa MD
== END 2019-05-16 15:38 | disposition home or self-care (01) ==
LOC: ED 13:03
DX: S80.12XA Contusion of left lower leg, initial encounter (principal); X58.XXXA Exposure to other specified factors, initial encounter; Y92.9 Unspecified place or not applicable; I48.91 Unspecified atrial fibrillation; I50.9 Heart failure, unspecified; I11.0 Hypertensive heart disease with heart failure; J44.9 Chronic obstructive pulmonary disease, unspecified; Z87.891 Personal history of nicotine dependence; Z79.01 Long term (current) use of anticoagulants; Z79.899 Other long term (current) drug therapy
CPT/HCPCS: 99282